=== PATIENT | male | born 1960 | race Caucasian/White ===

== ENCOUNTER → 2021-09-09 | Day surgery (SDC) | payer OTHER ==
[~2021-09-09] VITALS: Ht 175.3 cm; Wt 102.0 kg
[~2021-09-09] MED LIST: CENTRUM SILVER1 EAC5 PO; DHEA25 M1 PO; IRBESARTAN150 MG PO; LIPITOR 10MG TA10 MG PO; NIACIN ER500 MG PO; PRINIVIL20 MG PO; REQUIP1 MG PO; ROPINIROLE HCL2 MG PO; VIT E PO; VITAMIN D3125 MC1 PO; XYZAL5 MG PO
== END | disposition home or self-care (01) ==
LOC: FAS 07:14
DX: Z12.11 Encounter for screening for malignant neoplasm of colon (principal); D12.0 Benign neoplasm of cecum; K57.30 Diverticulosis of large intestine without perforation or abscess without bleeding; E78.5 Hyperlipidemia, unspecified; I10 Essential (primary) hypertension; Z86.010 Personal history of colon polyps; Z72.89 Other problems related to lifestyle
CPT/HCPCS: J2250; J2704; J7120